=== PATIENT | female | born 1975 | race Caucasian/White ===

== ENCOUNTER → 2017-06-11 14:28 | Outpatient (CLI) | payer OTHER ==
[2014-06-18 09:40] VITALS: BMI 41.0
[~2017-06-11 14:28] MED LIST: DEPAKOTE500 MG PO; DESERYL100 MG PO; EFFEXOR XR37.5 MG PO; HYDROCODONE-APA1 TAB PO; REGLAN10 MG PO; TOPROL XL50 MG PO
== END | disposition home or self-care (01) ==
LOC: D.MAMMO 09:00
DX: R92.8 Other abnormal and inconclusive findings on diagnostic imaging of breast (principal)

== ENCOUNTER → 2017-11-27 10:48 | Outpatient (CLI) | payer OTHER ==
[2014-06-18 09:40] VITALS: BMI 41.0
== END | disposition home or self-care (01) ==
LOC: D.MRI 10:48
DX: M54.12 Radiculopathy, cervical region (principal)